=== PATIENT | male | born 1960 | race Hispanic/Latino ===

== ENCOUNTER 2018-06-04 01:14 | Emergency (ER) | payer BC ==
[2018-06-04 01:32] VITALS: BMI 29.6
[2018-06-04] MEDS ORDERED: Glucagon Recombinant 1 mg Inj IM STA (02:00)
[2018-06-04] MEDS ORDERED: TDAP Vaccine 0.5 mL Syr IM ONE (02:01)
--- NOTE | 2018-06-04 04:18 | ED PDOC ---
Arrival/HPI <Juan F Lomeli - Last Filed: 06/04/18 04:16> <Ileana Plascencia PA-C - Last Filed: 06/04/18 17:45> - General Chief Complaint: Alcohol Ingestion Past Medical History - Tetanus Immunization Tetanus Immunization: Unknown - Past Medical History Past Medical History: Unable to Obtain - Psychiatric Hx Depression: No Hx Emotional Abuse: No Hx Physical Abuse: No Hx Substance Use: No - Past Surgical History Past Surgical History: Unable to Obtain - Anesthesia Hx Anesthesia: Yes - Suicidal Assessment Feels Threatened In Home Enviroment: No <Juan F Lomeli - Last Filed: 06/04/18 04:16> Family/Social History Smoking Status: Never Smoked Hx Alcohol Use: Yes Frequency of alcohol use: Socially Hx Substance Use: No Hx Substance Use Treatment: No <Juan F Lomeli - Last Filed: 06/04/18 04:16> Allergies/Home Meds <Juan F Lomeli - Last Filed: 06/04/18 04:16> <Ileana Plascencia PA-C - Last Filed: 06/04/18 17:45> Allergies/Adverse Reactions: Allergies No Known Allergies Allergy (Verified 08/20/14 02:08) Home Medications: Home Meds Medication Instructions Recorded Confirmed Unobtainable 04/08/13 06/04/18 Physical Exam Vital Signs Temp Pulse Resp BP Pulse Ox 06/04/18 01:20 98 F 72 16 143/63 95 <Juan F Lomeli - Last Filed: 06/04/18 04:16> Vital Signs Temp Pulse Resp BP Pulse Ox 06/04/18 07:43 98.1 F 70 18 99 06/04/18 05:14 68 18 132/68 95 06/04/18 03:14 68 18 135/65 96 06/04/18 01:20 98 F 72 16 143/63 95 <Ileana Plascencia PA-C - Last Filed: 06/04/18 17:45> Medical Decision Making ED Course and Treatment: 06/04/18 04:16 CT Head reviewed, shows: IMPRESSION: 1. There is generalized parenchymal atrophy noted as demonstrated by symmetrical dilatation of ventricles and sulci. 2. Chronic periventricular and subcortical microvascular disease is seen. 3. Bilateral basal ganglia calcifications. 4. No acute intracranial pathology. CT C-Spine reviewed, shows: IMPRESSION: 1. No fracture or spondylolisthesis. 2. Straightening of cervical lordosis is seen, suggesting muscular spasm. 3. Multilevel spondylosis. - Lab Interpretations Lab Results: Lab Results 06/04/18 03:30: Alcohol, Quantitative 397 H* - RAD Interpretation Radiology Orders: 06/04/18 02:00 CERVICAL SPINE W/O CONTRAST [CT] Stat HEAD W/O CONTRAST [CT] Stat - Medication Orders Current Medication Orders: Discontinued Medications Glucagon (Glucagen Diagnostic Kit) 1 mg IM STAT STA Stop: 06/04/18 02:01 Last Admin: 06/04/18 03:38 Dose: Not Given Non-Admin Reason: as per Tetanus/Reduced Diphtheria/Acell Pertussis (Boostrix Vaccine Inj) 0.5 ml IM .ONCE ONE Stop: 06/04/18 02:02 Last Admin: 06/04/18 03:38 Dose: 0.5 ml Immunization Registry Document 06/04/18 03:38 JOL (Rec: 06/04/18 03:38 JOL [id number]) [facility]-Date provided 06/04/18 <Juan F Lomeli - Last Filed: 06/04/18 04:16> - Lab Interpretations Lab Results: Lab Results 06/04/18 03:35: POC Glucose (mg/dL) 105 06/04/18 03:30: Alcohol, Quantitative 397 H* - RAD Interpretation Radiology Orders: 06/04/18 02:00 CERVICAL SPINE W/O CONTRAST [CT] Stat HEAD W/O CONTRAST [CT] Stat - Medication Orders Current Medication Orders: Discontinued Medications Glucagon (Glucagen Diagnostic Kit) 1 mg IM STAT STA Stop: 06/04/18 02:01 Last Admin: 06/04/18 03:38 Dose: Not Given Non-Admin Reason: as per Tetanus/Reduced Diphtheria/Acell Pertussis (Boostrix Vaccine Inj) 0.5 ml IM .ONCE ONE Stop: 06/04/18 02:02 Last Admin: 06/04/18 03:38 Dose: 0.5 ml Immunization Registry Document 06/04/18 03:38 JOL (Rec: 06/04/18 03:38 JOL [id number]) [facility]-Date provided 06/04/18 <Ileana Plascencia PA-C Last Filed: 06/04/18 17:45> Disposition/Present on Arrival - Present on Arrival History of DVT/PE: No History of Uncontrolled Diabetes: No Urinary Catheter: No History of Decub. Ulcer: No History Surgical Site Infection Following: None <Juan F Lomeli - Last Filed: 06/04/18 04:16> - Notes Notes (Text): 06/04/18 17:42 CT C spine : Impression: Limited study as above. Straightening of the normal cervical lordosis may be related to muscle spasm or positioning. Multilevel degenerative changes. No evidence of acute fracture or subluxation. Included portions of the thyroid gland: Punctate right lower pole calcifications and tiny hypodense nodule. Follow-up with ultrasound may be considered. Included portions of lung apices demonstrates 6 mm right upper lobe nodule. If indicated, CT of the chest suggested. Pt called 2x, message left on his cell phone to call back, will send a letter. <Ileana Plascencia PA-C - Last Filed: 06/04/18 17:45> - Disposition Diagnosis: Alcohol intoxication Disposition: HOME/ ROUTINE Condition: IMPROVED Discharge Instructions (ExitCare): Alcohol Abuse and Alcoholism (DC) Additional Instructions: JAYLAN HERNÁNDEZ JR, thank you for letting us take care of you today. The emergency medical care you received today was directed at your acute symptoms. If you were prescribed any medication, please fill it and take as directed. It may take several days for your symptoms to resolve. Return to the Emergency Department if your symptoms worsen, do not improve, or if you have any other problems. Please contact your doctor or call one of the physicians/clinics you have been referred to that are listed on the Patient Visit Information form that is included in your discharge packet. Bring any paperwork you were given at discharge with you along with any medications you are taking to your follow up visit. Our treatment cannot replace ongoing medical care by a primary care provider outside of the emergency department. Thank you for allowing the [facility] team to be part of your care today. Follow up with your primary care doctor if you have any concerns. Referrals: [facility], [Non-Staff] - Follow up with primary Forms: [facility] ([place])
[2018-06-04 06:52] VITALS: BP 132/68; RESP 18
[2018-06-04 07:45] VITALS: PULSE 70; TEMP 98.1; O2SAT 99
--- NOTE | 2018-06-04 08:51 | CT ---
Date of service: 06/04/2018 PROCEDURE: CT HEAD WITHOUT CONTRAST. HISTORY: fall w/ laceration COMPARISON: None available. TECHNIQUE: Axial computed tomography images were obtained through the head/brain without intravenous contrast. Radiation dose: Total exam DLP = 1033.49 mGy-cm. This CT exam was performed using one or more of the following dose reduction techniques: Automated exposure control, adjustment of the mA and/or kV according to patient size, and/or use of iterative reconstruction technique. FINDINGS: Streak and motion artifact significantly limit evaluation, particularly of the skull base. HEMORRHAGE: No intracranial hemorrhage. BRAIN: Diffuse atrophy with prominence of the ventricles and sulci noted. No mass effect or edema. Bilateral basal ganglia calcifications. Intracranial atherosclerotic calcifications. Scattered periventricular and subcortical white matter hypodensities, which are nonspecific, but often seen with chronic microvascular ischemic disease. Please note that MRI with diffusion imaging is more sensitive in the detection of acute ischemic event. VENTRICLES: No hydrocephalus. CALVARIUM: Unremarkable. PARANASAL SINUSES: Unremarkable as visualized. No significant inflammatory changes. MASTOID AIR CELLS: Unremarkable as visualized. No inflammatory changes. OTHER FINDINGS: Soft tissue irregularity, right frontal scalp. IMPRESSION: Examination limited by motion and streak artifact. Soft tissue irregularity, right frontal scalp. No acute intracranial pathology identified. Generalized volume loss. Nonspecific white matter changes. Preliminary impression was provided by [employer].
--- NOTE | 2018-06-04 10:03 | CT ---
Date of service: 06/04/2018 CT cervical spine without IV contrast Indication: fall Comparison: None available Technique: Axial computed tomography images were obtained of the cervical spine without the use of intravenous contrast. Coronal and sagittal reformatted images were created and reviewed. This CT exam was performed using 1 or more of the following dose reduction techniques: Automated exposure control, adjustment of the MAA and/or kV according to patient size, and/or use of iterative reconstruction technique. Radiation dose: Total exam DLP = 727.06 mGy-cm. Findings: Limited examination due to patient condition and motion. Straightening of the normal cervical lordosis may be related to muscle spasm or positioning. Multilevel degenerative changes including prominent osteophyte formation and intervertebral disc space narrowing. There is no evidence of acute fracture or subluxation. The prevertebral soft tissues and spinolaminar lines appear intact. The lateral masses are preserved. The dens tip is intact. There is proper alignment of the lateral masses of C1 with the C2 vertebral body. Included portions of the thyroid gland: Punctate right lower pole calcifications and tiny hypodense nodule. Included portions of lung apices demonstrates 6 mm right upper lobe nodule. Impression: Limited study as above. Straightening of the normal cervical lordosis may be related to muscle spasm or positioning. Multilevel degenerative changes. No evidence of acute fracture or subluxation. Included portions of the thyroid gland: Punctate right lower pole calcifications and tiny hypodense nodule. Follow-up with ultrasound may be considered. Included portions of lung apices demonstrates 6 mm right upper lobe nodule. If indicated, CT of the chest suggested. Preliminary impression was provided by [employer]. Study marked for PA review. Findings discussed with MALIA Dean on 06/04/18 at 9:56 a.m..
== END 2018-06-04 07:45 | disposition home or self-care (01) ==
LOC: ED 01:14
DX: F10.129 Alcohol abuse with intoxication, unspecified (principal); Z23 Encounter for immunization
CPT/HCPCS: 70450; 72125; 82948; 90471; 90715; 99284; G0480

== ENCOUNTER 2018-07-16 04:40 | Inpatient (IN) | payer BC ==
[2018-07-16 04:53] VITALS: BMI 27.3
--- NOTE | 2018-07-16 04:54 | ED PDOC ---
Arrival/HPI - General Time Seen by Provider: 07/16/18 04:48 Historian: Patient, EMS, Police - History of Present Illness Narrative History of Present Illness (Text): 07/16/18 04:50 58 year old male, whose past medical history includes alcohol abuse, presents to the emergency department for evaluation, status post fall 1 hour prior. Patient admits to drinking, and does not know how he fell. Police and EMS state patient fell down the stairs. Patient is bleeding, and has swelling on his forehead. Patient denies any denies vision changes, loss of consciousness, fevers, chills, chest pain, shortness of breath, back pain, neck pain, extremity pain, or any other complaint. Time/Duration: 1 hour Symptom Onset: Sudden Context: Walking Past Medical History - Provider Review Nursing Documentation Reviewed: Yes - Tetanus Immunization Tetanus Immunization: Up to Date - Past Medical History Past Medical History: Unable to Obtain - Psychiatric Hx Depression: No Hx Emotional Abuse: No Hx Physical Abuse: No Hx Substance Use: No - Past Surgical History Past Surgical History: Unable to Obtain - Anesthesia Hx Anesthesia: Yes - Suicidal Assessment Feels Threatened In Home Enviroment: No Family/Social History - Physician Review Nursing Documentation Reviewed: Yes Family/Social History: No Known Family HX Smoking Status: Never Smoked Hx Alcohol Use: Yes Hx Substance Use: No Hx Substance Use Treatment: No Allergies/Home Meds Allergies/Adverse Reactions: Allergies No Known Allergies Allergy (Verified 08/20/14 02:08) Home Medications: Home Meds Medication Instructions Recorded Confirmed RX: Unobtainable 04/08/13 07/16/18 Review of Systems - Physician Review All systems were reviewed & negative as marked: Yes - Review of Systems Constitutional: absent: Fatigue, Fevers, Night Sweats Eyes: absent: Vision Changes, Photophobia, Eye Pain ENT: absent: Hearing Changes Respiratory: absent: SOB, Cough Cardiovascular: absent: Chest Pain Gastrointestinal: absent: Abdominal Pain, Constipation, Diarrhea, Nausea, Vomiting Genitourinary Male: absent: Dysuria, Frequency, Hematuria Musculoskeletal: absent: Back Pain, Neck Pain, Myalgias (no pain in extremities) Skin: Laceration (On forehead ). absent: Rash Neurological: absent: Headache, Other (no LOC) Physical Exam Vital Signs Reviewed: Yes Temperature: Afebrile Blood Pressure: Normal Pulse: Tachycardic Respiratory Rate: Normal Appearance: Positive for: Well-Appearing, Non-Toxic, Comfortable Pain Distress: None Mental Status: Positive for: Alert and Oriented X 3 - Systems Exam Head: Present: Contusion (right forehead contusion with hematoma). No: Laceration (No lac noted) Pupils: Present: PERRL. No: Sluggish Extroacular Muscles: Present: EOMI, Other (baseline vision bilaterally) Conjunctiva: Present: Normal. No: Other (no conjunctival hemorrhage or eye pain) Ears: Present: Normal, NORMAL TM, Normal Canal. No: Erythema Mouth: Present: Moist Mucous Membranes Pharnyx: No: ERYTHEMA, EXUDATE Nose (Internal): No: Septal Hematoma Neck: Present: Normal Range of Motion. No: Meningeal Signs, MIDLINE TENDERNESS, Paraspinal Tenderness, JVD Respiratory/Chest: Present: Clear to Auscultation, Good Air Exchange. No: Respiratory Distress, Accessory Muscle Use Cardiovascular: Present: Normal S1, S2, Tachycardic. No: Murmurs Abdomen: No: Tenderness, Distention, Peritoneal Signs Back: Present: Normal Inspection. No: CVA Tenderness, Midline Tenderness Upper Extremity: Present: Normal Inspection. No: Cyanosis, Edema Lower Extremity: Present: Normal Inspection. No: Edema Neurological: Present: GCS=15, CN II-XII Intact, Speech Normal Skin: Present: Warm, Dry, Normal Color. No: Rashes Psychiatric: Present: Alert, Oriented x 3, Normal Insight, Normal Concentration Medical Decision Making ED Course and Treatment: 07/16/18 05:13 Impression: 58 year old male presents for evaluation status post fall. Appears intoxicated on exam. Tetanus UTD per pt. No LOC. Normal vision B/l at baseline per pt w/ good welch. No signs of withdrawal on exam. No skull fracture noted on palpation. Denies being on any blood thinners. No abdominal pain or chest pain or hip pain. N/v intact in all extremities w/ out any pain. No obvious lac noted. Plan: -- Labs -- CT ABD& Pelvis -- CT Cercical spine -- CT Head -- CT Maxillofacial -- CBC -- Chest X-ray -- Restraint -- Reassess and disposition Prior Visits: Notes and results from previous visits were reviewed. Progress Notes: 07/16/18 06:10 Pt states he does not want CT- given obvious head trauma on ETOH, will restrain for patients safety and order CT Sedation ordered as well. ETOH 241 clears at 0900 07/16/[address] Wen pending imaging, reassessment and disposition. Pt in NAD - Scribe Statement The provider has reviewed the documentation as recorded by the Scribe Demetrio Malone Provider Scribe Attestation: All medical record entries made by the Scribe were at my direction and personally dictated by me. I have reviewed the chart and agree that the record accurately reflects my personal performance of the history, physical exam, medical decision making, and the department course for this patient. I have also personally directed, reviewed, and agree with the discharge instructions and disposition. Disposition/Present on Arrival - Present on Arrival Any Indicators Present on Arrival: No History of DVT/PE: No History of Uncontrolled Diabetes: No Urinary Catheter: No History Surgical Site Infection Following: None - Disposition Have Diagnosis and Disposition been Completed?: Yes Diagnosis: Intraparenchymal hematoma of brain, Orbital floor fracture, Alcohol abuse Disposition: HOSPITALIZED Disposition Time: 07:00 Condition: CRITICAL
[2018-07-16 05:57] LABS: BASO # 0.03 K/mm3 (0.0-2.0); BASO % 0.3 % (0.0-3.0); EOS % 0.3 % (1.5-5.0); GRAN # 7.56 (1.4-6.5); GRAN % 66.5 % (50.0-68.0); HEMOGLOBIN 14.6 g/dL (14.0-18.0); LYMPH # 2.7 (1.2-3.4); LYMPH % 24.1 % (22.0-35.0); MEAN CELL VOLUME 95.7 fl (80.0-105.0); MEAN CORPUSCULAR HEMOGLOBIN 33.1 pg (25.0-35.0); MEAN CORPUSCULAR HGB CONC 34.6 g/dl (31.0-37.0); MEAN PLATELET VOLUME 10.5 fl (7.0-11.0); MONO % 8.8 % (1.0-6.0); RBC 4.41 10^6/uL (3.5-6.1); RED CELL DISTRIBUTION WIDTH 12.1 % (11.5-14.5); WHITE BLOOD COUNT 11.4 10^3/uL (4.5-11.0)
[2018-07-16 06:06] LABS: ALB/GLOB RATIO 1.2 (1.1-1.8); ALBUMIN 4.5 g/dL (3.0-4.8); ALT/SGPT 36 U/L (7-56); AST/SGOT 65 U/L (17-59); BLOOD UREA NITROGEN 10 mg/dL (7-21); CALCIUM 9.5 mg/dL (8.4-10.5); GFR NON-AFRICAN AMERICAN > 60
[2018-07-16] MEDS ORDERED: DiphenhydrAMINE 50 mg/ml Inj IM STA (06:47)
--- NOTE | 2018-07-16 07:14 | ED PDOC ---
Physical Exam Vital Signs Temp Pulse Resp BP Pulse Ox 07/16/18 05:01 97.8 F 105 H 16 142/77 98 Medical Decision Making ED Course and Treatment: 07/16/18 07:00 Case endorsed to me by Dr. Karla Josue, pending imaging/CT scans and disposition. 07/16/18 08:15 CT results pending, preliminary read shows intraparenchymal bleed. Case discussed with Dr. Menchaca, who is aware and agrees with plan. Accepts pt in to her service. Requests consults with ICU, neurosurgery, and Dr. Briggs. 07/16/18 08:[address] Almanzar, radiology, regarding CT Head findings. Neurosurgery paged. CT Head shows: HEMORRHAGE: 1.4 x 1.0 cm right frontal parenchymal hemorrhage. Small amount hemorrhage l ayering along the falx anteriorly. BRAIN: No mass effect or edema. Atrophy. Chronic microvascular ischemic changes. VENTRICLES: Unremarkable. No hydrocephalus. CALVARIUM: Comminuted fracture of right orbital floor. PARANASAL SINUSES: Severe right maxillary sinus mucosal thickening. Mild/trace mucosal thickening involving the sphenoid sinuses, bilateral ethmoid air cells and right frontal sinus MASTOID AIR CELLS: Unremarkable as visualized. No inflammatory changes. OTHER FINDINGS: Large right frontal/periorbital hematoma. IMPRESSION: Large right frontal/periorbital hematoma. Comminuted right orbital floor fracture without herniation of orbital fat or extraocular muscles. Focal right frontal parenchymal hemorrhage measuring 1.4 x 1.0 cm. Small amount hemorrhage layering along the falx anteriorly. 07/16/18 08:[address] Manisha Jerez, clinic office assistant, who agrees with ICU admission. Pt will be admitted to the ICU for intraparenchymal bleed, orbital floor fracture, and alcohol abuse under Dr. Menchaca's service. 07/16/18 08:[address] Miranda, neurosurgeon, recommends repeat CT Head in 6 hours, no surgical intervention at this time. 07/16/18 09:06 Reviewed EKG, NSR at [address]/T wave changes. - Critical Care Critical Care Minutes: 30 minutes - Lab Interpretations Lab Results: 07/16/18 05:11 07/16/18 05:11 Lab Results 07/16/18 05:11: Alcohol, Quantitative 241 H 07/16/18 05:11: Sodium 141, Potassium 3.5 L, Chloride 103, Carbon Dioxide 20 L, Anion Gap 21 H, BUN 10, Creatinine 0.8, Est GFR ( Amer) > 60, Est GFR (Non-Af Amer) > 60, Random Glucose 113 H, Calcium 9.5, Total Bilirubin 0.9, AST 65 H, ALT 36, Alkaline Phosphatase 109, Total Protein 8.3, Albumin 4.5, Globulin 3.8, Albumin/Globulin Ratio 1.2 07/16/18 05:11: WBC 11.4 H, RBC 4.41, Hgb 14.6, Hct 42.2, MCV 95.7, MCH 33.1, MCHC 34.6, RDW 12.1, Plt Count 208, MPV 10.5, Gran % 66.5, Lymph % (Auto) 24.1, Eddy % (Auto) 8.8 H, Eos % (Auto) 0.3 L, Baso % (Auto) 0.3, Gran # 7.56 H, Lymph # (Auto) 2.7, Eddy # (Auto) 1.0 H, Eos # (Auto) 0.0, Baso # (Auto) 0.03 07/16/18 05:09: POC Glucose (mg/dL) 117 H - RAD Interpretation Radiology Orders: 07/16/18 04:57 ABD & PELVIS W/O PO OR IV CONT [CT] Stat CERVICAL SPINE W/O CONTRAST [CT] Stat HEAD W/O CONTRAST [CT] Stat CHEST PORTABLE [RAD] Stat 07/16/18 05:00 MAXILLOFACIAL W/O CONTRAST [CT] Stat Diesel Engine Specialist: Radiologist - EKG Interpretation Interpreted by ED Physician: Yes Type: 12 lead EKG - Medication Orders Current Medication Orders: Discontinued Medications Diphenhydramine HCl (Benadryl) 25 mg IM STAT STA Stop: 07/16/18 06:48 Last Admin: 07/16/18 06:55 Dose: 25 mg IM Administration Charges Document 07/16/18 06:55 RG (Rec: 07/16/18 07:10 ANA [id number]) Injection Site MAR Injection Site Left Deltoid Charges for Administration # of IM Administrations 1 Haloperidol Lactate (Haldol) 2.5 mg IM STAT STA; Protocol Stop: 07/16/18 06:48 Last Admin: 07/16/18 06:56 Dose: 2.5 mg IM Administration Charges Document 07/16/18 06:56 RG (Rec: 07/16/18 07:10 RG [id number]) Injection Site MAR Injection Site Left Deltoid Charges for Administration # of IM Administrations 1 Lorazepam (Ativan) 1 mg IM ONCE ONE; Protocol Stop: 07/16/18 06:48 Last Admin: 07/16/18 06:53 Dose: 1 mg IM Administration Charges Document 07/16/18 06:53 RG (Rec: 07/16/18 07:09 RG [id number]) Injection Site MAR Injection Site Left Deltoid Charges for Administration # of IM Administrations 1 - Scribe Statement The provider has reviewed the documentation as recorded by the Jen Tran Provider Scribe Attestation: All medical record entries made by the Scribe were at my direction and personally dictated by me. I have reviewed the chart and agree that the record accurately reflects my personal performance of the history, physical exam, medical decision making, and the department course for this patient. I have also personally directed, reviewed, and agree with the discharge instructions and disposition. Disposition/Present on Arrival - Present on Arrival Any Indicators Present on Arrival: No History of DVT/PE: No History of Uncontrolled Diabetes: No Urinary Catheter: No History of Decub. Ulcer: No History Surgical Site Infection Following: None - Disposition Have Diagnosis and Disposition been Completed?: Yes Diagnosis: Intraparenchymal hematoma of brain, Orbital floor fracture, Alcohol abuse Disposition: HOSPITALIZED Disposition Time: 08:00 Condition: CRITICAL
[2018-07-16 07:28] VITALS: TEMP 97.9
--- NOTE | 2018-07-16 08:28 | CT ---
Date of service: 07/16/2018 PROCEDURE: CT HEAD WITHOUT CONTRAST. HISTORY: fall COMPARISON: CT head dated 06/04/2018 TECHNIQUE: Axial computed tomography images were obtained through the head/brain without intravenous contrast. Radiation dose: Total exam DLP = 1036.19 mGy-cm. This CT exam was performed using one or more of the following dose reduction techniques: Automated exposure control, adjustment of the mA and/or kV according to patient size, and/or use of iterative reconstruction technique. FINDINGS: HEMORRHAGE: 1.4 x 1.0 cm right frontal parenchymal hemorrhage. Small amount hemorrhage layering along the falx anteriorly. BRAIN: No mass effect or edema. Atrophy. Chronic microvascular ischemic changes. VENTRICLES: Unremarkable. No hydrocephalus. CALVARIUM: Comminuted fracture of right orbital floor. PARANASAL SINUSES: Severe right maxillary sinus mucosal thickening. Mild/trace mucosal thickening involving the sphenoid sinuses, bilateral ethmoid air cells and right frontal sinus MASTOID AIR CELLS: Unremarkable as visualized. No inflammatory changes. OTHER FINDINGS: Large right frontal/periorbital hematoma. IMPRESSION: Large right frontal/periorbital hematoma. Comminuted right orbital floor fracture without herniation of orbital fat or extraocular muscles. Focal right frontal parenchymal hemorrhage measuring 1.4 x 1.0 cm. Small amount hemorrhage layering along the falx anteriorly. Findings discussed with Dr. Wen by Dr. Almanzar at 8:20 a.m. on 07/16/2018.
--- NOTE | 2018-07-16 08:30 | CT ---
Date of service: 07/16/2018 PROCEDURE: CT MAXILLOFACIAL BONES WITHOUT CONTRAST HISTORY: fall COMPARISON: None available. TECHNIQUE: Contiguous axial CT images of the maxillofacial bones were obtained. Coronal and sagittal reformats were generated. Radiation dose: Total exam DLP = 788.29 mGy-cm. This CT exam was performed using one or more of the following dose reduction techniques: Automated exposure control, adjustment of the mA and/or kV according to patient size, and/or use of iterative reconstruction technique. FINDINGS: NASAL BONES: Unremarkable. ORBITS: Large right frontal/periorbital scalp hematoma. Comminuted right orbital floor fracture. PARANASAL SINUSES/ MASTOIDS: Severe right maxillary sinus mucosal thickening. Trace bilateral sphenoid sinus, right frontal sinus and bilateral ethmoid air cell mucosal thickening. MAXILLA: Unremarkable. MANDIBLE/ TEMPOROMANDIBULAR JOINTS: Unremarkable. SKULL BASE: Unremarkable. TEMPORAL BONES: Middle ears and mastoid grossly unremarkable. OTHER FINDINGS: Partially imaged right frontal parenchymal hemorrhage. IMPRESSION: Large right frontal/periorbital scalp hematoma. Comminuted right orbital floor fracture with significant herniation of intraorbital fat or extraocular muscles. Partially imaged right frontal parenchymal hemorrhage. Findings discussed with Dr. Wen by Dr. Almanzar at 8:20 a.m. on 07/16/2018.
--- NOTE | 2018-07-16 08:33 | CT ---
Date of service: 07/16/2018 PROCEDURE: CT Cervical Spine without contrast HISTORY: fall COMPARISON: CT scan of the cervical spine dated 06/04/2018 TECHNIQUE: Axial computed tomography images were obtained of the cervical spine without the use of intravenous contrast. Coronal and sagittal reformatted images were created and reviewed. Radiation dose: Total exam DLP = 630.03 mGy-cm. This CT exam was performed using one or more of the following dose reduction techniques: Automated exposure control, adjustment of the mA and/or kV according to patient size, and/or use of iterative reconstruction technique. FINDINGS: VERTEBRAE: No fracture. Normal alignment. No destructive bony lesion. Large anterior osteophytes DISCS/SPINAL CANAL/NEURAL FORAMINA: Multilevel disc space narrowing. PARASPINAL SOFT TISSUES: Unremarkable. OTHER FINDINGS: Partially imaged comminuted right orbital floor fracture. Stable 6 mm right upper lobe nodule. IMPRESSION: No acute cervical spinal fracture. Multilevel degenerative changes. Partially imaged comminuted right orbital floor fracture. Stable 6 mm right upper lobe nodule. Findings discussed with Dr. Wen by Dr. Almanzar at 8:20 a.m. on 07/16/2018.
[2018-07-16 08:45] LABS: INR 1.12; PARTIAL THROMBOPLASTIN TIME 31.4 Seconds (25.1-36.5); PROTHROMBIN TIME 12.9 SECONDS (9.4-12.5)
--- NOTE | 2018-07-16 08:58 | CT ---
Date of service: 07/16/2018 PROCEDURE: CT Abdomen and Pelvis without intravenous contrast HISTORY: fall COMPARISON: None. TECHNIQUE: Contiguous images were obtained from the domes of the diaphragms to the upper thighs without the administration of intravenous contrast. Oral contrast was not administered. Radiation dose: Total exam DLP = 759.04 mGy-cm. This CT exam was performed using one or more of the following dose reduction techniques: Automated exposure control, adjustment of the mA and/or kV according to patient size, and/or use of iterative reconstruction technique. FINDINGS: LOWER THORAX: Cardiomegaly. Coronary arterial and valvular calcification. No focal consolidation or pleural effusion. LIVER: Unremarkable. No gross lesion or ductal dilatation. GALLBLADDER AND BILE DUCTS: Prior cholecystectomy with surgical clips in place PANCREAS: Unremarkable. No gross lesion or ductal dilatation. SPLEEN: Unremarkable. ADRENALS: Unremarkable. No mass. KIDNEYS AND URETERS: Punctate left upper pole calculus. No hydronephrosis. No solid mass. VASCULATURE: Unremarkable. No aortic aneurysm. Aortic atherosclerotic calcification present. BOWEL: Colonic diverticulosis. No obstruction. No gross mural thickening. APPENDIX: Unremarkable. Normal appendix. PERITONEUM: Moderate right and small left fat containing inguinal hernias. No free fluid. No free air. LYMPH NODES: Unremarkable. No enlarged lymph nodes. BLADDER: Unremarkable. REPRODUCTIVE: Prostatomegaly. BONES: Old lateral right 7th rib fracture. Age-indeterminate posterior left 12th rib fracture. Old lateral left 6th and posterior left 11th rib fracture. Chronic T12 compression fracture. Prior right hip arthroplasty. Left hip arthritic changes, questionable early osteonecrosis. No acute fracture. OTHER FINDINGS: None. IMPRESSION: Age-indeterminate posterior left 12th rib fracture. No other evidence of acute traumatic injury to the abdomen and pelvis. Additional findings as above.
--- NOTE | 2018-07-16 09:30 | CP.PCM.PN ---
Subjective - Date & Time of Evaluation Date of Evaluation: 07/16/18 Time of Evaluation: 09:28 - Subjective Subjective: 58 year old male, whose past medical history includes alcohol abuse fell down the stairs. Patient is bleeding, and has swelling on his forehead. Patient denies any denies vision changes, loss of consciousness, fevers, chills, chest pain, shortness of breath, back pain, neck pain, extremity pain, or any other complaint. Ct shows small right frontal intracerbral hematoma no mass effect No indication for evacuation Repeat CT at least 6 hrs after original study, and if no change can be d/c home until then observe pt Objective - Vital Signs/Intake and Output Vital Signs (last 24 hours): Temp Pulse Resp BP Pulse Ox 97.9 F 105 H 16 139/74 96 07/16/18 08:47 07/16/18 08:47 07/16/18 08:47 07/16/18 08:47 07/16/18 08:47 - Labs Labs: 07/16/18 05:11 07/16/18 05:11 PT 12.9 SECONDS (9.4-12.5) H 07/16/18 08:20 INR 1.12 07/16/18 08:20 APTT 31.4 Seconds (25.1-36.5) 07/16/18 08:20
--- NOTE | 2018-07-16 10:26 | RAD ---
Date of service: 07/16/2018 HISTORY: fall COMPARISON: No prior. FINDINGS: LUNGS: No active pulmonary disease. PLEURA: No significant pleural effusion identified, no pneumothorax apparent. CARDIOVASCULAR: Aortic atherosclerotic calcifications. Normal cardiac size. No pulmonary vascular congestion. OSSEOUS STRUCTURES: No significant abnormalities. VISUALIZED UPPER ABDOMEN: Normal. OTHER FINDINGS: None. IMPRESSION: No active disease.
[2018-07-16] MEDS ORDERED: Dextrose 5%/0.45% NS 1,000 ML IV SCH (12:00)
--- NOTE | 2018-07-16 12:06 | CP.PCM.CON ---
<Ankit Lin - Last Filed: 07/16/18 14:52> History of Present Illness - History of Present Illness History of Present Illness: Ankit Lin, PGY-1 Consult Note for ICU Service CC: Fall HPI: Mr. Griffin is a 58 year old male, who denies any past medical history and presents status post fall overnight. Patient states he was in his backyard playing with his dog, when he feel backward and then subsequently forward and then hit his head. Patient denies drinking ETOH and denies knowledge of how he fell. Per report, police and EMS state patient fell down outside his house, at which point they brought him to the hospital for evaluation. Patient is currently bleeding and has swelling from above his R eyelid. Patient reports mild neck pain but denies any vision changes, vision difficulties, loss of consciousness, fevers, chills, chest pain, shortness of breath, back pain, extremity pain, dizziness or headaches. Review of Systems - Review of Systems Review of Systems: 12 point ROS complete and negative except as described in HPI. Past Patient History - Tetanus Immunizations Tetanus Immunization: Unknown - Past Social History Smoking Status: Current Some Days Smoker - CARDIAC Hx Cardiac Disorders: No - PULMONARY Hx Respiratory Disorders: No - NEUROLOGICAL Hx Neurological Disorder: No - HEENT Hx HEENT Problems: No - RENAL Hx Chronic Kidney Disease: No - ENDOCRINE/METABOLIC Hx Endocrine Disorders: No - HEMATOLOGICAL/ONCOLOGICAL Hx Blood Disorders: No - INTEGUMENTARY Hx Dermatological Problems: No - MUSCULOSKELETAL/RHEUMATOLOGICAL Hx Musculoskeletal Disorders: No Hx Falls: Yes - GASTROINTESTINAL Hx Gastrointestinal Disorders: No - GENITOURINARY/GYNECOLOGICAL Hx Genitourinary Disorders: No - PSYCHIATRIC Hx Psychophysiologic Disorder: Yes Hx Substance Use: No (unknown) Other/Comment: ETOH abuse - SURGICAL HISTORY Hx Surgeries: No - ANESTHESIA Hx Anesthesia: Yes Meds Allergies/Adverse Reactions: Allergies Allergy/AdvReac Type Severity Reaction Status Date / Time No Known Allergies Allergy Verified 08/20/14 02:08 - Medications Medications: Current Medications Acetaminophen (Tylenol 325mg Tab) 650 mg PO Q6H PRN PRN Reason: Fever >100.4 F Chlordiazepoxide (Librium) 25 mg PO Q8 [facility]INA; Protocol Dextrose/Sodium Chloride (Dextrose 5%/0.45% Ns 1000 Ml) 1,000 mls @ 100 mls/hr IV .Q10H [facility]INA Lorazepam (Ativan) 1 mg IM Q2H PRN; Protocol PRN Reason: Anxiety Lorazepam (Ativan) 2 mg IVP Q4H SAMINA; Protocol Ondansetron HCl (Zofran Inj) 4 mg IVP Q6H PRN PRN Reason: Nausea/Vomiting Pantoprazole Sodium (Protonix Ec Tab) 40 mg PO 0630 [facility] Thiamine HCl (Vitamin B1 Tab) 100 mg PO DAILY SAMINA Physical Exam - Constitutional Appears: Non-toxic, No Acute Distress, Unkempt - Head Exam Head Exam: absent: ATRAUMATIC (right forehead contusion with bleeding hematoma, swelling and purple ecchymosies circumferentially around the eyelid with almost complete inability to open R eyelidl) - Eye Exam Eye Exam: Normal appearance, PERRL (L, R unable to be determined) - ENT Exam ENT Exam: Normal External Ear Exam Additional comments: Negative encarnacion's sign bilaterally - Neck Exam Neck exam: Positive for: Full Rom, Normal Inspection. Negative for: Tenderness - Respiratory Exam Respiratory Exam: Clear to Auscultation Bilateral. absent: Chest Wall Tenderness, Rales, Rhonchi, Wheezes - Cardiovascular Exam Cardiovascular Exam: RRR, +S1, +S2 - GI/Abdominal Exam GI & Abdominal Exam: Normal Bowel Sounds. absent: Distended, Firm, Tenderness - Back Exam Back exam: NORMAL INSPECTION. absent: CVA tenderness (L), CVA tenderness (R) - Neurological Exam Neurological exam: Alert, Oriented x3 - Psychiatric Exam Psychiatric exam: Anxious - Skin Skin Exam: Dry, Intact (except for earlier findings), Normal Color, Warm Results - Vital Signs Recent Vital Signs: Last Vital Signs Temp 97.9 F 07/16/18 08:47 Pulse 76 07/16/18 11:50 Resp 19 07/16/18 11:50 BP 120/64 07/16/18 11:00 Pulse Ox 88 L 07/16/18 11:50 - Labs Result Diagrams: 07/16/18 05:11 07/16/18 05:11 Labs: Laboratory Results - last 24 hr 07/16/18 07/16/18 07/16/18 05:09 05:11 05:11 WBC 11.4 H RBC 4.41 Hgb 14.6 Hct 42.2 MCV 95.7 MCH 33.1 MCHC 34.6 RDW 12.1 Plt Count 208 MPV 10.5 Gran % 66.5 Lymph % (Auto) 24.1 [place] % (Auto) 8.8 H Eos % (Auto) 0.3 L Baso % (Auto) 0.3 Gran # 7.56 H Lymph # (Auto) 2.7 [place] # (Auto) 1.0 H Eos # (Auto) 0.0 Baso # (Auto) 0.03 PT INR APTT Sodium 141 Potassium 3.5 L Chloride 103 Carbon Dioxide 20 L Anion Gap 21 H BUN 10 Creatinine 0.8 Est GFR ( Amer) > 60 Est GFR (Non-Af Amer) > 60 POC Glucose (mg/dL) 117 H Random Glucose 113 H Calcium 9.5 Total Bilirubin 0.9 AST 65 H ALT 36 Alkaline Phosphatase 109 Total Protein 8.3 Albumin 4.5 Globulin 3.8 Albumin/Globulin Ratio 1.2 Alcohol, Quantitative Blood Type Antibody Screen BBK History Checked 07/16/18 07/16/18 07/16/18 05:11 05:49 08:20 WBC RBC Hgb Hct MCV MCH MCHC RDW Plt Count MPV Gran % Lymph % (Auto) [place] % (Auto) Eos % (Auto) Baso % (Auto) Gran # Lymph # (Auto) [place] # (Auto) Eos # (Auto) Baso # (Auto) PT 12.9 H INR 1.12 APTT 31.4 Sodium Potassium Chloride Carbon Dioxide Anion Gap BUN Creatinine Est GFR ( Amer) Est GFR (Non-Af Amer) POC Glucose (mg/dL) Random Glucose Calcium Total Bilirubin AST ALT Alkaline Phosphatase Total Protein Albumin Globulin Albumin/Globulin Ratio Alcohol, Quantitative 241 H Blood Type O POSITIVE Antibody Screen Negative BBK History Checked No verified bt Assessment & Plan - Assessment and Plan (Free Text) Assessment: Mr. Griffin is a 58 M with no past medical history who presents s/p fall and R sided facial trauma. Neuro - AAOx3, no focal deficits - UDS pending, ETOH level 241 - Neurochecks q2h - CIWA protocol - Aspiration, Seizure, Fall precautions - D5 1/2 NS @ 100 cc/hr - Ativan IVP 2mg q6 Scheduled and 1q2 PRN, Librium 25 mg q8, Thiamine supplementation 07/16/18: CT HEAD shows: Large right frontal/periorbital hematoma. Comminuted right orbital floor fracture without herniation of orbital fat or extraocular muscles. Focal right frontal parenchymal hemorrhage measuring 1.4 x 1.0 cm. Small amount hemorrhage layering along the falx anteriorly. 07/16/18: CT MAXILLOFACIAL BONES WITHOUT CONTRAST shows Large right fr ontal/periorbital scalp hematoma. Comminuted right orbital floor fracture with significant herniation of intraorbital fat or extraocular muscles. Partially imaged right frontal parenchymal hemorrhage. - Neurosurgery consult - Dr. Miranda. Repeat CT head at 4 pm. Further recs appreciated. - Neurology consult- Dr. Anitha Briggs - recs appreciated - ENT consult - Dr. Smith - recs appreciated - F/U swallow eval and treat MSK: 07/16/18: CT Cervical Spine without contrast: No acute cervical spinal fracture. Multilevel degenerative changes. Partially imaged comminuted right orbital floor fracture. Stable 6 mm right upper lobe nodule. 07/16/19 CXR shows no active disease 07/16/18 CT Abdomen and Pelvis without intravenous contrast Old lateral right 7th rib fracture. Age-indeterminate posterior left 12th rib fracture. Old lateral left 6th and posterior left 11th rib fracture. Chronic T12 compression fracture. Prior right hip arthroplasty. Left hip arthritic changes, questionable early osteonecrosis. No acute fracture. No other evidence of acute traumatic injury to the abdomen and pelvis. -R facial trauma, wound care following - Pain control with Tylenol 650 q6h Cardio: EKG: NSR at [address]/T wave changes. - Maintain MAP> 65 - Continue to monitor GI - Zofran 4 mg q6h IVP PRN - PTX 40 mg PO Patient seen, case reviewed and plan approved by Dr. Manisha Jerez. Ankit Lin, PGY-1 <Tanner Jerez - Last Filed: 07/16/18 17:40> Meds - Medications Medications: Current Medications Acetaminophen (Tylenol 325mg Tab) 650 mg PO Q6H PRN PRN Reason: Fever >100.4 F Cephalexin Monohydrate (Keflex) 500 mg PO Q6 [facility]; Protocol Chlordiazepoxide (Librium) 25 mg PO Q8 [facility]INA; Protocol Last Admin: 07/16/18 14:46 Dose: 25 mg Dextrose/Sodium Chloride (Dextrose 5%/0.45% Ns 1000 Ml) 1,000 mls @ 100 mls/hr IV .Q10H [facility]INA Last Admin: 07/16/18 12:00 Dose: 100 mls/hr Lorazepam (Ativan) 1 mg IM Q2H PRN; Protocol PRN Reason: Anxiety Lorazepam (Ativan) 2 mg IVP Q4H [facility]; Protocol Last Admin: 07/16/18 12:15 Dose: Not Given Ondansetron HCl (Zofran Inj) 4 mg IVP Q6H PRN PRN Reason: Nausea/Vomiting Pantoprazole Sodium (Protonix Ec Tab) 40 mg PO 0630 [facility] Thiamine HCl (Vitamin B1 Tab) 100 mg PO DAILY [facility] Last Admin: 07/16/18 14:46 Dose: 100 mg Results - Vital Signs Recent Vital Signs: Last Vital Signs Temp 97.9 F 07/16/18 09:48 Pulse 89 07/16/18 16:50 Resp 20 07/16/18 16:50 BP 129/75 07/16/18 16:00 Pulse Ox 99 07/16/18 16:50 - Labs Result Diagrams: 07/16/18 05:11 07/16/18 05:11 Labs: Laboratory Results - last 24 hr 07/16/18 07/16/18 07/16/18 05:09 05:11 05:11 WBC 11.4 H RBC 4.41 Hgb 14.6 Hct 42.2 MCV 95.7 MCH 33.1 MCHC 34.6 RDW 12.1 Plt Count 208 MPV 10.5 Gran % 66.5 Lymph % (Auto) 24.1 [place] % (Auto) 8.8 H Eos % (Auto) 0.3 L Baso % (Auto) 0.3 Gran # 7.56 H Lymph # (Auto) 2.7 [place] # (Auto) 1.0 H Eos # (Auto) 0.0 Baso # (Auto) 0.03 PT INR APTT Sodium 141 Potassium 3.5 L Chloride 103 Carbon Dioxide 20 L Anion Gap 21 H BUN 10 Creatinine 0.8 Est GFR ( Amer) > 60 Est GFR (Non-Af Amer) > 60 POC Glucose (mg/dL) 117 H Random Glucose 113 H Calcium 9.5 Total Bilirubin 0.9 AST 65 H ALT 36 Alkaline Phosphatase 109 Total Protein 8.3 Albumin 4.5 Globulin 3.8 Albumin/Globulin Ratio 1.2 Alcohol, Quantitative Blood Type Antibody Screen BBK History Checked 12/07/16/18 07/16/18 05:11 05:49 08:20 WBC RBC Hgb Hct MCV MCH MCHC RDW Plt Count MPV Gran % Lymph % (Auto) [place] % (Auto) Eos % (Auto) Baso % (Auto) Gran # Lymph # (Auto) [place] # (Auto) Eos # (Auto) Baso # (Auto) PT 12.9 H INR 1.12 APTT 31.4 Sodium Potassium Chloride Carbon Dioxide Anion Gap BUN Creatinine Est GFR ( Amer) Est GFR (Non-Af Amer) POC Glucose (mg/dL) Random Glucose Calcium Total Bilirubin AST ALT Alkaline Phosphatase Total Protein Albumin Globulin Albumin/Globulin Ratio Alcohol, Quantitative 241 H Blood Type O POSITIVE Antibody Screen Negative BBK History Checked No verified bt Addendum Addendum: 07/16/18 17:40 ICU Attending Addendum Patient seen and examined. Case reviewed on round with housestaff. Agree with resident note above with the following additions/exceptions: 58M with etoh abuse admitted after a traumatic fall resulting in right frontal parenchymal hemorrhage measuring 1.4 x 1.0 cm. Also noted to have large right frontal/periorbital hematoma. Comminuted right orbital floor fracture with significant herniation of intraorbital fat or extraocular muscles. will monitor with ICU of qhour neuro checks f/u neuro recs avoid hypertension tx of possible etoh w/d with [place] ENT consult pending Rest of care as above Tanner Jerez MD Pulmonary Critical Care and Sleep Medicine
[2018-07-16] MEDS ORDERED: Potassium Chloride 20 mEq ER Tab PO STA (14:46)
--- NOTE | 2018-07-16 15:14 | CON ---
DATE: 07/16/2018 NEUROLOGY CONSULTATION CHIEF COMPLAINT: Small frontal intraparenchymal hemorrhage. HISTORY OF PRESENT ILLNESS: This is 58-year-old man with history of alcohol abuse, hypertension, who is status post fall down the stairs and the patient was also bleeding, swelling on his forehead, had a right frontal scalp hematoma as well as on a CAT scan found to have a right frontal intracranial bleed which is small in nature without any mass effect and therefore no neurosurgical intervention is done by neurosurgery. The patient has had swelling of the forehead, but does not have any headache. Denies any changes . The patient is wanting to go home. Recommend to be on CIWA protocol, since chronic EtOH abuse. ALLERGIES: NO KNOWN DRUG ALLERGIES. FAMILY HISTORY: Noncontributory. MEDICATIONS: Reviewed by nurse reconciliation sheet. SOCIAL HISTORY: Daily drinker and smoker. REVIEW OF SYSTEMS: A 14-point review of systems is negative except as per the HPI. PHYSICAL EXAMINATION: GENERAL: The patient seen up in bed. No acute distress. HEENT: Shows contusion on the right forehead with hematoma. No laceration noted. NECK: Supple. No JVD. No adenopathy noted. LUNGS: Clear to auscultation. No adventitious sounds. HEART: S1 and S2. Normal rate and rhythm. No murmurs, rubs, or gallops. ABDOMEN: Soft and nontender. Normoactive bowel sounds present. EXTREMITIES: No clubbing. No cyanosis. Peripheral pulses 2+ felt bilaterally. NEUROLOGIC: The patient is alert, oriented to person, place, month and year. Speech is fluent without any errors. Cranial nerves II through XII intact. Motor Exam: Moves all extremities equally. Toes are downgoing bilaterally. Sensory Exam: Light touch, pinprick, proprioception, and vibration are intact. DTRs are 2+ throughout. Coordination: [id number] intact. Gait is deferred for now. LABORATORY DATA: Sodium is 141, potassium 3.5, chloride 103, carbon dioxide 20, BUN of 10, creatinine 0.8, and 113. IMPRESSION AND PLAN: A 58-year-old man with history of ETOH abuse, history of hypertension, status post fall down the stairs resulted in right frontal scalp hematoma as well as right frontal small intracranial hemorrhage which is small in nature without any mass effect, therefore no surgical intervention needed to be done. At this time, the patient denies any focal changes. I will recommend the repeat CT scan of the head, if no worsen or bleed, the patient could be definitely discharged home and alcohol cessation should be advised. Denis Briggs MD
--- NOTE | 2018-07-16 15:27 | CP.PCM.CON ---
<Sharif Contreras - Last Filed: 07/16/18 15:27> History of Present Illness - History of Present Illness History of Present Illness: ENT consult for Dr. Camp 58M with pmhx of EtOH abuse presents to [facility] after a fall. Patient had been drinking and fell forward landing on his right side. Patient has significant right perioorbital swelling. Past Patient History - Tetanus Immunizations Tetanus Immunization: Unknown - Past Social History Smoking Status: Current Some Days Smoker - CARDIAC Hx Cardiac Disorders: No - PULMONARY Hx Respiratory Disorders: No - NEUROLOGICAL Hx Neurological Disorder: No - HEENT Hx HEENT Problems: No - RENAL Hx Chronic Kidney Disease: No - ENDOCRINE/METABOLIC Hx Endocrine Disorders: No - HEMATOLOGICAL/ONCOLOGICAL Hx Blood Disorders: No - INTEGUMENTARY Hx Dermatological Problems: No - MUSCULOSKELETAL/RHEUMATOLOGICAL Hx Musculoskeletal Disorders: No Hx Falls: Yes - GASTROINTESTINAL Hx Gastrointestinal Disorders: No - GENITOURINARY/GYNECOLOGICAL Hx Genitourinary Disorders: No - PSYCHIATRIC Hx Psychophysiologic Disorder: Yes Hx Substance Use: No (unknown) Other/Comment: ETOH abuse - SURGICAL HISTORY Hx Surgeries: No - ANESTHESIA Hx Anesthesia: Yes Meds Allergies/Adverse Reactions: Allergies Allergy/AdvReac Type Severity Reaction Status Date / Time No Known Allergies Allergy Verified 08/20/14 02:08 - Medications Medications: Current Medications Acetaminophen (Tylenol 325mg Tab) 650 mg PO Q6H PRN PRN Reason: Fever >100.4 F Chlordiazepoxide (Librium) 25 mg PO Q8 [facility]INA; Protocol Last Admin: 07/16/18 14:46 Dose: 25 mg Dextrose/Sodium Chloride (Dextrose 5%/0.45% Ns 1000 Ml) 1,000 mls @ 100 mls/hr IV .Q10H SAMINA Last Admin: 07/16/18 12:00 Dose: 100 mls/hr Lorazepam (Ativan) 1 mg IM Q2H PRN; Protocol PRN Reason: Anxiety Lorazepam (Ativan) 2 mg IVP Q4H SAMINA; Protocol Ondansetron HCl (Zofran Inj) 4 mg IVP Q6H PRN PRN Reason: Nausea/Vomiting Pantoprazole Sodium (Protonix Ec Tab) 40 mg PO 0630 [facility] Thiamine HCl (Vitamin B1 Tab) 100 mg PO DAILY [facility] Last Admin: 07/16/18 14:46 Dose: 100 mg Results - Vital Signs Recent Vital Signs: Last Vital Signs Temp 97.9 F 07/16/18 09:48 Pulse 80 07/16/18 14:30 Resp 18 07/16/18 14:30 BP 116/59 L 07/16/18 14:00 Pulse Ox 96 07/16/18 14:30 - Labs Result Diagrams: 07/16/18 05:11 07/16/18 05:11 Labs: Laboratory Results - last 24 hr 07/16/18 07/16/18 07/16/18 05:09 05:11 05:11 WBC 11.4 H RBC 4.41 Hgb 14.6 Hct 42.2 MCV 95.7 MCH 33.1 MCHC 34.6 RDW 12.1 Plt Count 208 MPV 10.5 Gran % 66.5 Lymph % (Auto) 24.1 [place] % (Auto) 8.8 H Eos % (Auto) 0.3 L Baso % (Auto) 0.3 Gran # 7.56 H Lymph # (Auto) 2.7 [place] # (Auto) 1.0 H Eos # (Auto) 0.0 Baso # (Auto) 0.03 PT INR APTT Sodium 141 Potassium 3.5 L Chloride 103 Carbon Dioxide 20 L Anion Gap 21 H BUN 10 Creatinine 0.8 Est GFR ( Amer) > 60 Est GFR (Non-Af Amer) > 60 POC Glucose (mg/dL) 117 H Random Glucose 113 H Calcium 9.5 Total Bilirubin 0.9 AST 65 H ALT 36 Alkaline Phosphatase 109 Total Protein 8.3 Albumin 4.5 Globulin 3.8 Albumin/Globulin Ratio 1.2 Alcohol, Quantitative Blood Type Antibody Screen BBK History Checked 07/16/18 07/16/18 07/16/18 05:11 05:49 08:20 WBC RBC Hgb Hct MCV MCH MCHC RDW Plt Count MPV Gran % Lymph % (Auto) [place] % (Auto) Eos % (Auto) Baso % (Auto) Gran # Lymph # (Auto) [place] # (Auto) Eos # (Auto) Baso # (Auto) PT 12.9 H INR 1.12 APTT 31.4 Sodium Potassium Chloride Carbon Dioxide Anion Gap BUN Creatinine Est GFR ( Amer) Est GFR (Non-Af Amer) POC Glucose (mg/dL) Random Glucose Calcium Total Bilirubin AST ALT Alkaline Phosphatase Total Protein Albumin Globulin Albumin/Globulin Ratio Alcohol, Quantitative 241 H Blood Type O POSITIVE Antibody Screen Negative BBK History Checked No verified bt <Khalif Camp - Last Filed: 07/16/18 19:27> Meds - Medications Medications: Current Medications Acetaminophen (Tylenol 325mg Tab) 650 mg PO Q6H PRN PRN Reason: Fever >100.4 F Cephalexin Monohydrate (Keflex) 500 mg PO Q6 [facility]INA; Protocol Chlordiazepoxide (Librium) 25 mg PO Q8 [facility]INA; Protocol Last Admin: 07/16/18 14:46 Dose: 25 mg Dextrose/Sodium Chloride (Dextrose 5%/0.45% Ns 1000 Ml) 1,000 mls @ 100 mls/hr IV .Q10H [facility] Last Admin: 07/16/18 12:00 Dose: 100 mls/hr Lorazepam (Ativan) 1 mg IM Q2H PRN; Protocol PRN Reason: Anxiety Lorazepam (Ativan) 2 mg IVP Q4H [facility]; Protocol Last Admin: 07/16/18 12:15 Dose: Not Given Ondansetron HCl (Zofran Inj) 4 mg IVP Q6H PRN PRN Reason: Nausea/Vomiting Pantoprazole Sodium (Protonix Ec Tab) 40 mg PO 0630 [facility] Thiamine HCl (Vitamin B1 Tab) 100 mg PO DAILY [facility] Last Admin: 07/16/18 14:46 Dose: 100 mg Results - Vital Signs Recent Vital Signs: Last Vital Signs Temp 97.9 F 07/16/18 09:48 Pulse 80 07/16/18 17:40 Resp 23 07/16/18 17:40 BP 145/79 07/16/18 17:00 Pulse Ox 97 07/16/18 17:40 - Labs Result Diagrams: 07/16/18 05:11 07/16/18 05:11 Labs: Laboratory Results - last 24 hr 07/16/18 07/16/18 07/16/18 05:09 05:11 05:11 WBC 11.4 H RBC 4.41 Hgb 14.6 Hct 42.2 MCV 95.7 MCH 33.1 MCHC 34.6 RDW 12.1 Plt Count 208 MPV 10.5 Gran % 66.5 Lymph % (Auto) 24.1 [place] % (Auto) 8.8 H Eos % (Auto) 0.3 L Baso % (Auto) 0.3 Gran # 7.56 H Lymph # (Auto) 2.7 [place] # (Auto) 1.0 H Eos # (Auto) 0.0 Baso # (Auto) 0.03 PT INR APTT Sodium 141 Potassium 3.5 L Chloride 103 Carbon Dioxide 20 L Anion Gap 21 H BUN 10 Creatinine 0.8 Est GFR ( Amer) > 60 Est GFR (Non-Af Amer) > 60 POC Glucose (mg/dL) 117 H Random Glucose 113 H Calcium 9.5 Total Bilirubin 0.9 AST 65 H ALT 36 Alkaline Phosphatase 109 Total Protein 8.3 Albumin 4.5 Globulin 3.8 Albumin/Globulin Ratio 1.2 Urine Opiates Screen Urine Methadone Screen Ur Barbiturates Screen Ur Phencyclidine Scrn Ur Amphetamines Screen U Benzodiazepines Scrn U Oth Cocaine Metabols U Cannabinoids Screen Alcohol, Quantitative Blood Type Antibody Screen BBK History Checked 07/16/18 07/16/18 07/16/18 05:11 05:49 08:20 WBC RBC Hgb Hct MCV MCH MCHC RDW Plt Count MPV Gran % Lymph % (Auto) [place] % (Auto) Eos % (Auto) Baso % (Auto) Gran # Lymph # (Auto) [place] # (Auto) Eos # (Auto) Baso # (Auto) PT 12.9 H INR 1.12 APTT 31.4 Sodium Potassium Chloride Carbon Dioxide Anion Gap BUN Creatinine Est GFR ( Amer) Est GFR (Non-Af Amer) POC Glucose (mg/dL) Random Glucose Calcium Total Bilirubin AST ALT Alkaline Phosphatase Total Protein Albumin Globulin Albumin/Globulin Ratio Urine Opiates Screen Urine Methadone Screen Ur Barbiturates Screen Ur Phencyclidine Scrn Ur Amphetamines Screen U Benzodiazepines Scrn U Oth Cocaine Metabols U Cannabinoids Screen Alcohol, Quantitative 241 H Blood Type O POSITIVE Antibody Screen Negative BBK History Checked No verified bt 07/16/18 16:59 WBC RBC Hgb Hct MCV MCH MCHC RDW Plt Count MPV Gran % Lymph % (Auto) [place] % (Auto) Eos % (Auto) Baso % (Auto) Gran # Lymph # (Auto) [place] # (Auto) Eos # (Auto) Baso # (Auto) PT INR APTT Sodium Potassium Chloride Carbon Dioxide Anion Gap BUN Creatinine Est GFR ( Amer) Est GFR (Non-Af Amer) POC Glucose (mg/dL) Random Glucose Calcium Total Bilirubin AST ALT Alkaline Phosphatase Total Protein Albumin Globulin Albumin/Globulin Ratio Urine Opiates Screen Negative Urine Methadone Screen Negative Ur Barbiturates Screen Negative Ur Phencyclidine Scrn Negative Ur Amphetamines Screen Negative U Benzodiazepines Scrn Negative U Oth Cocaine Metabols Negative U Cannabinoids Screen Negative Alcohol, Quantitative Blood Type Antibody Screen BBK History Checked Assessment & Plan (1) Alcohol abuse Status: Acute (2) Intraparenchymal hematoma of brain Status: Acute (3) Orbital floor fracture Status: Acute Attending/Attestation - Attestation I have personally seen and examined this patient.: Yes I have fully participated in the care of the patient.: Yes I have reviewed all pertinent clinical information: Yes Notes (Text): discussed findings of orbital floor fracture with the patient and family. Ocular movements intact no appreciable entrapment, forehead hematoma. The patient has intracranial findings and was urged to remain in the hospital for observation. Rx for Keflex given with f/u instructions 07/16/18 19:25
--- NOTE | 2018-07-16 17:13 | CT ---
Date of service: 07/16/2018 PROCEDURE: CT HEAD WITHOUT CONTRAST. HISTORY: intracranial bleed COMPARISON: CT head performed earlier the same day. TECHNIQUE: Axial computed tomography images were obtained through the head/brain without intravenous contrast. Radiation dose: Total exam DLP = 1043.86 mGy-cm. This CT exam was performed using one or more of the following dose reduction techniques: Automated exposure control, adjustment of the mA and/or kV according to patient size, and/or use of iterative reconstruction technique. FINDINGS: HEMORRHAGE: Similar size and appearance of right frontal parenchymal hemorrhage. Small amount hemorrhage again seen layering along the falx anteriorly. Small amount hemorrhage is now seen lying along the falx superiorly. BRAIN: No mass effect or edema. Atrophy. Chronic microvascular ischemic changes. VENTRICLES: Unremarkable. No hydrocephalus. CALVARIUM: Comminuted fracture of right orbital floor. PARANASAL SINUSES: Moderate right maxillary sinus mucosal thickening. MASTOID AIR CELLS: Unremarkable as visualized. No inflammatory changes. OTHER FINDINGS: Large right frontal/periorbital hematoma IMPRESSION: Similar size and appearance of right frontal parenchymal hemorrhage and small amount of hemorrhage layering along the falx anteriorly. Tiny amount hemorrhage now seen layering along the falx superiorly as well. No other significant interval change.
--- NOTE | 2018-07-16 17:33 | CARD ---
APPROVED REPORT Date of service: 07/16/2018 EKG Measurement Heart [id number] <Conclusion> Normal sinus rhythm Normal Electrocardiogram
[2018-07-16 17:43] VITALS: BP 145/79; PULSE 80; RESP 23; O2SAT 97
[2018-07-16 17:50] LABS: BARBITURATES, UR NEGATIVE (NEGATIVE); BENZODIAZEPINES, UR NEGATIVE (NEGATIVE); OPIATES, UR NEGATIVE (NEGATIVE); PHENCYCLIDINE, UR NEGATIVE (NEGATIVE)
--- NOTE | 2018-07-16 19:33 | CP.PCM.CON ---
History of Present Illness - History of Present Illness History of Present Illness: 58 y/o male with hx of htn and EtOH use and recent fall down stairs. CT performed and frontal intracranial bleed noted along with orbital floor fracture (medial orbital wall fracture also appreciated). Pt having mild pain eye swollen. Review of Systems - Review of Systems Systems not reviewed;Unavailable: Acuity of Condition - Constitutional Constitutional: As Per HPI - EENT Eyes: As Per HPI Ears: As Per HPI Nose/Mouth/Throat: As Per HPI - Cardiovascular Cardiovascular: As Per HPI - Respiratory Respiratory: As Per HPI - Gastrointestinal Gastrointestinal: As Per HPI - Genitourinary Genitourinary: As Per HPI - Reproductive: Male Reproductive:Male: As Per HPI - Musculoskeletal Musculoskeletal: As Per HPI - Integumentary Integumentary: As Per HPI - Neurological Neurological: As Per HPI - Psychiatric Psychiatric: As Per HPI - Endocrine Endocrine: As Per HPI - Hematologic/Lymphatic Hematologic: As Per HPI Past Patient History - Tetanus Immunizations Tetanus Immunization: Unknown - Past Social History Smoking Status: Current Some Days Smoker - CARDIAC Hx Cardiac Disorders: No - PULMONARY Hx Respiratory Disorders: No - NEUROLOGICAL Hx Neurological Disorder: No - HEENT Hx HEENT Problems: No - RENAL Hx Chronic Kidney Disease: No - ENDOCRINE/METABOLIC Hx Endocrine Disorders: No - HEMATOLOGICAL/ONCOLOGICAL Hx Blood Disorders: No - INTEGUMENTARY Hx Dermatological Problems: No - MUSCULOSKELETAL/RHEUMATOLOGICAL Hx Musculoskeletal Disorders: No Hx Falls: Yes - GASTROINTESTINAL Hx Gastrointestinal Disorders: No - GENITOURINARY/GYNECOLOGICAL Hx Genitourinary Disorders: No - PSYCHIATRIC Hx Psychophysiologic Disorder: Yes Hx Substance Use: No (unknown) Other/Comment: ETOH abuse - SURGICAL HISTORY Hx Surgeries: No - ANESTHESIA Hx Anesthesia: Yes Meds Allergies/Adverse Reactions: Allergies Allergy/AdvReac Type Severity Reaction Status Date / Time No Known Allergies Allergy Verified 08/20/14 02:08 - Medications Medications: Current Medications Acetaminophen (Tylenol 325mg Tab) 650 mg PO Q6H PRN PRN Reason: Fever >100.4 F Cephalexin Monohydrate (Keflex) 500 mg PO Q6 [facility]; Protocol Chlordiazepoxide (Librium) 25 mg PO Q8 [facility]INA; Protocol Last Admin: 07/16/18 14:46 Dose: 25 mg Dextrose/Sodium Chloride (Dextrose 5%/0.45% Ns 1000 Ml) 1,000 mls @ 100 mls/hr IV .Q10H [facility] Last Admin: 07/16/18 12:00 Dose: 100 mls/hr Lorazepam (Ativan) 1 mg IM Q2H PRN; Protocol PRN Reason: Anxiety Lorazepam (Ativan) 2 mg IVP Q4H [facility]; Protocol Last Admin: 07/16/18 12:15 Dose: Not Given Ondansetron HCl (Zofran Inj) 4 mg IVP Q6H PRN PRN Reason: Nausea/Vomiting Pantoprazole Sodium (Protonix Ec Tab) 40 mg PO 0630 [facility] Thiamine HCl (Vitamin B1 Tab) 100 mg PO DAILY [facility] Last Admin: 07/16/18 14:46 Dose: 100 mg Physical Exam - Constitutional Appears: Well, Non-toxic - Head Exam Head Exam: ATRAUMATIC, NORMAL INSPECTION - Eye Exam Eye Exam: EOMI, Periorbital swelling, Periorbital tenderness, PERRL Pupil Exam: NORMAL ACCOMODATION - ENT Exam ENT Exam: Mucous Membranes Moist, Normal Exam Additional comments: ear canals patent nose mild rhinitis with mild blood throat no palate movement neck supple forehead rt large scalp hematoma Results - Vital Signs Recent Vital Signs: Last Vital Signs Temp 97.9 F 07/16/18 09:48 Pulse 80 07/16/18 17:40 Resp 23 07/16/18 17:40 BP 145/79 07/16/18 17:00 Pulse Ox 97 07/16/18 17:40 - Labs Result Diagrams: 07/16/18 05:11 07/16/18 05:11 Labs: Laboratory Results - last 24 hr 07/16/18 07/16/18 07/16/18 05:09 05:11 05:11 WBC 11.4 H RBC 4.41 Hgb 14.6 Hct 42.2 MCV 95.7 MCH 33.1 MCHC 34.6 RDW 12.1 Plt Count 208 MPV 10.5 Gran % 66.5 Lymph % (Auto) 24.1 [place] % (Auto) 8.8 H Eos % (Auto) 0.3 L Baso % (Auto) 0.3 Gran # 7.56 H Lymph # (Auto) 2.7 [place] # (Auto) 1.0 H Eos # (Auto) 0.0 Baso # (Auto) 0.03 PT INR APTT Sodium 141 Potassium 3.5 L Chloride 103 Carbon Dioxide 20 L Anion Gap 21 H BUN 10 Creatinine 0.8 Est GFR ( Amer) > 60 Est GFR (Non-Af Amer) > 60 POC Glucose (mg/dL) 117 H Random Glucose 113 H Calcium 9.5 Total Bilirubin 0.9 AST 65 H ALT 36 Alkaline Phosphatase 109 Total Protein 8.3 Albumin 4.5 Globulin 3.8 Albumin/Globulin Ratio 1.2 Urine Opiates Screen Urine Methadone Screen Ur Barbiturates Screen Ur Phencyclidine Scrn Ur Amphetamines Screen U Benzodiazepines Scrn U Oth Cocaine Metabols U Cannabinoids Screen Alcohol, Quantitative Blood Type Antibody Screen BBK History Checked 07/16/18 07/16/18 07/16/18 05:11 05:49 08:20 WBC RBC Hgb Hct MCV MCH MCHC RDW Plt Count MPV Gran % Lymph % (Auto) [place] % (Auto) Eos % (Auto) Baso % (Auto) Gran # Lymph # (Auto) [place] # (Auto) Eos # (Auto) Baso # (Auto) PT 12.9 H INR 1.12 APTT 31.4 Sodium Potassium Chloride Carbon Dioxide Anion Gap BUN Creatinine Est GFR ( Amer) Est GFR (Non-Af Amer) POC Glucose (mg/dL) Random Glucose Calcium Total Bilirubin AST ALT Alkaline Phosphatase Total Protein Albumin Globulin Albumin/Globulin Ratio Urine Opiates Screen Urine Methadone Screen Ur Barbiturates Screen Ur Phencyclidine Scrn Ur Amphetamines Screen U Benzodiazepines Scrn U Oth Cocaine Metabols U Cannabinoids Screen Alcohol, Quantitative 241 H Blood Type O POSITIVE Antibody Screen Negative BBK History Checked No verified bt 07/16/18 16:59 WBC RBC Hgb Hct MCV MCH MCHC RDW Plt Count MPV Gran % Lymph % (Auto) [place] % (Auto) Eos % (Auto) Baso % (Auto) Gran # Lymph # (Auto) [place] # (Auto) Eos # (Auto) Baso # (Auto) PT INR APTT Sodium Potassium Chloride Carbon Dioxide Anion Gap BUN Creatinine Est GFR ( Amer) Est GFR (Non-Af Amer) POC Glucose (mg/dL) Random Glucose Calcium Total Bilirubin AST ALT Alkaline Phosphatase Total Protein Albumin Globulin Albumin/Globulin Ratio Urine Opiates Screen Negative Urine Methadone Screen Negative Ur Barbiturates Screen Negative Ur Phencyclidine Scrn Negative Ur Amphetamines Screen Negative U Benzodiazepines Scrn Negative U Oth Cocaine Metabols Negative U Cannabinoids Screen Negative Alcohol, Quantitative Blood Type Antibody Screen BBK History Checked Assessment & Plan (1) Alcohol abuse Status: Acute (2) Intraparenchymal hematoma of brain Status: Acute (3) Orbital floor fracture Status: Acute - Assessment and Plan (Free Text) Plan: pt was urged to stay in hospital for observation of intracranial findings. He was told to f/u in office with ENT upon discharge, rx for keflex given - Date & Time Date: 07/16/18 Time: 19:31
--- NOTE | 2018-07-16 21:28 | HP ---
DATE OF EXAM: 07/16/2018 HISTORY OF PRESENT ILLNESS: The patient is 58 years old who was brought to emergency room after he had a fall. The patient is not very good historian, does not know what happened. According to ER input, EMS brought the patient to emergency room. They were told that he fell from stairs. The patient is not giving much history. He does not have any complaints right now discomfort in the right temporal area. PAST MEDICAL HISTORY: Significant for hypertension. ALLERGIES: NOT ALLERGIC TO ANY MEDICATION. MEDICATION: He does not recall which blood pressure medication he is on. SOCIAL HISTORY: He does admit smoking. He does admit drinking alcohol to the point that he can get drunk. PHYSICAL EXAMINATION: HEENT: He has huge hematoma in his right periorbital area and his right eye shut because of the hematoma and he has facial abrasion also on the right cheek and right forehead. He has nonicteric sclerae. No thyromegaly. There is no lymphadenopathy. VITAL SIGNS: He is afebrile, pulse 105, respirations 16 and blood pressure 136/74. LUNGS: Bilateral fair airflow. No rhonchi or crackle. HEART: S1 and S2, audible. ABDOMEN: Soft, obese and nontender. No rebound. No guarding. NEUROLOGIC: The patient is awake and alert, able to communicate, answers simple questions, able to move all extremities. LABORATORY DATA: WBC 11.4, hemoglobin 14, hematocrit 42 and platelet 208. PT 12.9 and INR 1.12. Chemistry; sodium 141, potassium 3.5, chloride 103, CO2 of 20, BUN 10, creatinine 0.8 and blood sugar of 113. LFTs show AST of 65, 36. Alcohol level is 241. He had CT scan of the head done that shows large right frontoparietal hematoma, communicating right orbital floor fracture without herniation of orbital fat or extraocular muscle, focal right frontal parenchymal hemorrhage measuring 1.4 x [address] scan also shows large right periorbital scalp hematoma. X-ray of the chest, no active disease. Cervical spine CT, no acute cervical spinal fracture noted. CT scan of the abdomen and pelvis shows left twelfth rib fracture. ASSESSMENT: 1. Status post fall. 2. Alcohol intoxication. 3. Right periorbital hematoma. 4. Intracranial hemorrhage. PLAN: We will start the patient on IV fluids and Protonix. We get neuro evaluation, get neurosurgical evaluation and also ENT evaluation and we will follow up the patient. Jaqueline Menchaca MD
[2018-07-17] MEDS ORDERED: Pantoprazole 40 mg EC Tab PO SCH (06:30)
--- NOTE | 2018-07-18 18:54 | DS ---
The patient is a 58-year-old, who came in, he admits drinking, he was drunk and fell from flight of stairs. He does not able to call what happened actually. He developed big bruise and hematoma in the right periorbital area. He was admitted in ICU. He had small intracranial bleed. Neurosurgical evaluation was requested and it was decided not to do any intervention. The patient remain in ICU. He needed to be watched closely, but the patient did not want to stay, he signed AMA and so he left on 07/16/2018 evening. DISCHARGE DIAGNOSES: 1. Status post fall. 2. Alcohol intoxication. 3. Right periorbital hematoma. 4. History of hypertension. 5. He will follow with his primary care doctor. Jaqueline Menchaca MD
== END 2018-07-16 22:10 | disposition left against medical advice (07) | DRG 86 ==
LOC: ED 04:40 → ERH 08:30 → ICU 09:10
PROVIDERS: ADMIT Internal Medicine; ATTEND Internal Medicine
DX: S06.300A Unspecified focal traumatic brain injury without loss of consciousness, initial encounter (principal); M48.54XA Collapsed vertebra, not elsewhere classified, thoracic region, initial encounter for fracture; S02.31XA Fracture of orbital floor, right side, initial encounter for closed fracture; S00.03XA Contusion of scalp, initial encounter; F10.129 Alcohol abuse with intoxication, unspecified; Y90.8 Blood alcohol level of 240 mg/100 ml or more; I10 Essential (primary) hypertension; F17.200 Nicotine dependence, unspecified, uncomplicated; W10.9XXA Fall (on) (from) unspecified stairs and steps, initial encounter; Z96.641 Presence of right artificial hip joint